=== PATIENT | male | born 1950 | race Caucasian/White ===

== ENCOUNTER 2020-12-05 10:24 | Emergency (ER) | payer OTHER ==
[~2020-12-05] VITALS: Ht 185.4 cm; Wt 45.4 kg
[~2020-12-05 10:24] MED LIST: NITR.4SL SL; PANT40 PO; TIOT18 INH
[2020-12-05 11:03] LABS: BASOPHILS ABSOLUTE AUTO 0.03 K/mm3 (0.00-0.23); BASOPHILS PERCENT AUTO 1 % (0-2); EOSINOPHILS ABSOLUTE AUTO 0.03 K/mm3 (0.00-0.68); EOSINOPHILS PERCENT AUTO 1 % (0-6); Hematocrit 34.8 % (37.0-53.0); Hemoglobin 11.8 g/dL (13.5-17.5); IMMATURE GRAN ABSOLUTE AUTO 0.01 K/mm3 (0.00-0.10); IMMATURE GRAN PERCENT AUTO 0 % (0-1); LYMPHOCYTES ABSOLUTE AUTO 0.75 K/mm3 (0.84-5.20); LYMPHOCYTES PERCENT AUTO 14 % (21-46); MONOCYTES PERCENT AUTO 6 % (4-13); Mean Corpuscular HGB 33.1 pg (26.0-34.0); Mean Corpuscular HGB Conc 33.9 g/dL (31.5-36.5); Mean Corpuscular Volume 98 fL (80-100); Mean Platelet Volume 11.2 fL (9.1-12.4); NEUTROPHILS PERCENT AUTO 79 % (41-73); Platelet Count 142 K/mm3 (150-400); RDW Coefficient Variation 12.8 % (11.7-14.2); RDW Standard Deviation 46.1 fL (35.1-46.3); Red Blood Cell Count 3.57 M/mm3 (4.30-5.90); White Blood Cell Count 5.42 K/mm3 (4.00-11.30)
[2020-12-05 11:16] LABS: Alanine Aminotransfer (ALT/SGP 18 U/L (12-78); Albumin, Blood 3.1 g/dL (3.4-5.0); Albumin/Globulin Ratio 0.9 (0.8-1.8); Alk Phos 67 U/L (50-136); Anion Gap 7 mmol/L (6-16); Aspartate Aminotrans (AST/SGOT 31 U/L (12-37); Bilirubin, Total 1.9 mg/dL (0.1-1.0); Blood Urea Nitrogen 7 mg/dL (8-24); Bun/Creatinine Ratio 8.2 (12.0-20.0); CO2, Blood 26 mmol/L (21-32); Calcium, Blood 8.8 mg/dL (8.5-10.1); Chloride, Blood 98 mmol/L (98-108); Creatinine, Blood 0.86 mg/dL (0.60-1.20); Globulin, Blood 3.3 g/dL (2.2-4.0); Glomerular Filtration Rate >60 (60-); Glucose, Blood 127 mg/dL (70-99); Potassium, Blood 3.3 mmol/L (3.5-5.5); Sodium, Blood 131 mmol/L (136-145); Total Protein, Blood 6.4 g/dL (6.4-8.2); Troponin I <0.015 ng/mL (0.000-0.040)
== END 2020-12-05 13:10 | disposition home or self-care (01) ==
LOC: ER 10:24
PROVIDERS: Emergency Medicine
DX: R53.1 Weakness (principal); R05 Cough; R63.0 Anorexia; J44.9 Chronic obstructive pulmonary disease, unspecified; I10 Essential (primary) hypertension; K21.9 Gastro-esophageal reflux disease without esophagitis; F17.200 Nicotine dependence, unspecified, uncomplicated
CPT/HCPCS: 70450; 71045; 74177; 80053; 84484; 85025; 93005; 93010; 96365-59; 99285-25; J3480; Q9967

== ENCOUNTER → 2021-11-14 | Outpatient (CLI) | payer OTHER ==
[2021-11-14 19:00] LABS: BASOPHILS ABSOLUTE AUTO 0.03 K/mm3 (0.00-0.23); BASOPHILS PERCENT AUTO 1 % (0-2); EOSINOPHILS PERCENT AUTO 2 % (0-6); Hematocrit 36.2 % (37.0-53.0); Hemoglobin 12.1 g/dL (13.5-17.5); IMMATURE GRAN ABSOLUTE AUTO 0.01 K/mm3 (0.00-0.10); IMMATURE GRAN PERCENT AUTO 0 % (0-1); LYMPHOCYTES ABSOLUTE AUTO 1.32 K/mm3 (0.84-5.20); LYMPHOCYTES PERCENT AUTO 30 % (21-46); MONOCYTES ABSOLUTE AUTO 0.34 K/mm3 (0.16-1.47); MONOCYTES PERCENT AUTO 8 % (4-13); Mean Corpuscular HGB 31.3 pg (26.0-34.0); Mean Corpuscular HGB Conc 33.4 g/dL (31.5-36.5); Mean Corpuscular Volume 94 fL (80-100); Mean Platelet Volume 10.9 fL (9.1-12.4); NEUTROPHILS ABSOLUTE AUTO 2.62 K/mm3 (1.96-9.15); NEUTROPHILS PERCENT AUTO 59 % (41-73); Platelet Count 167 K/mm3 (150-400); RDW Coefficient Variation 12.1 % (11.7-14.2); RDW Standard Deviation 41.8 fL (35.1-46.3); Red Blood Cell Count 3.87 M/mm3 (4.30-5.90); White Blood Cell Count 4.42 K/mm3 (4.00-11.30)
[2021-11-14 19:48] LABS: Alanine Aminotransfer (ALT/SGP 21 U/L (12-78); Albumin, Blood 3.5 g/dL (3.4-5.0); Alk Phos 89 U/L (50-136); Anion Gap 5 mmol/L (6-16); Aspartate Aminotrans (AST/SGOT 31 U/L (12-37); Bilirubin, Total 0.9 mg/dL (0.1-1.0); Blood Urea Nitrogen 13 mg/dL (8-24); Bun/Creatinine Ratio 14.8 (12.0-20.0); CHOL/HDL RATIO 1.1; CO2, Blood 28 mmol/L (21-32); Calcium, Blood 9.1 mg/dL (8.5-10.1); Chloride, Blood 97 mmol/L (98-108); Cholesterol 120 mg/dL (50-200); Creatinine, Blood 0.88 mg/dL (0.60-1.20); Globulin, Blood 3.6 g/dL (2.2-4.0); Glomerular Filtration Rate >60 (60-); Glucose, Blood 85 mg/dL (70-99); HDL Cholesterol 106 mg/dL (>39); LDL/HDL RATIO 0.1; Low Density Lipoprotein Chol 6 mg/dL (0-110); Potassium, Blood 4.6 mmol/L (3.5-5.5); Sodium, Blood 130 mmol/L (136-145); Total Protein, Blood 7.1 g/dL (6.4-8.2); Triglycerides 39 mg/dL (30-160); Very Low Density Lipoprot Chol 7 mg/dL (6-32)
== END ==
LOC: LAB SHORT 17:53
PROVIDERS: Nurse Practitioner Family
DX: I10 Essential (primary) hypertension (principal); E03.9 Hypothyroidism, unspecified; E78.5 Hyperlipidemia, unspecified; E11.9 Type 2 diabetes mellitus without complications
CPT/HCPCS: 36415; 80053; 80061; 83036; 84443; 85025

== ENCOUNTER → 2022-05-31 | Outpatient (CLI) | payer OTHER ==
[2022-05-31 17:23] LABS: BASOPHILS ABSOLUTE AUTO 0.04 K/mm3 (0.00-0.23); BASOPHILS PERCENT AUTO 1 % (0-2); EOSINOPHILS ABSOLUTE AUTO 0.04 K/mm3 (0.00-0.68); EOSINOPHILS PERCENT AUTO 1 % (0-6); Hematocrit 36.9 % (37.0-53.0); Hemoglobin 11.7 g/dL (13.5-17.5); IMMATURE GRAN ABSOLUTE AUTO 0.02 K/mm3 (0.00-0.10); IMMATURE GRAN PERCENT AUTO 0 % (0-1); LYMPHOCYTES ABSOLUTE AUTO 1.23 K/mm3 (0.84-5.20); LYMPHOCYTES PERCENT AUTO 19 % (21-46); MONOCYTES ABSOLUTE AUTO 0.55 K/mm3 (0.16-1.47); MONOCYTES PERCENT AUTO 8 % (4-13); Mean Corpuscular HGB 30.1 pg (26.0-34.0); Mean Corpuscular HGB Conc 31.7 g/dL (31.5-36.5); Mean Corpuscular Volume 95 fL (80-100); Mean Platelet Volume 10.5 fL (9.1-12.4); NEUTROPHILS ABSOLUTE AUTO 4.66 K/mm3 (1.96-9.15); NEUTROPHILS PERCENT AUTO 71 % (41-73); Platelet Count 295 K/mm3 (150-400); RDW Coefficient Variation 12.7 % (11.7-14.2); RDW Standard Deviation 43.9 fL (35.1-46.3); Red Blood Cell Count 3.89 M/mm3 (4.30-5.90); White Blood Cell Count 6.54 K/mm3 (4.00-11.30)
[2022-05-31 18:09] LABS: Percent Saturation 13.1 % (20.0-50.0)
== END | disposition home or self-care (01) ==
LOC: LAB SHORT 10:35
PROVIDERS: Nurse Practitioner Family
DX: J44.9 Chronic obstructive pulmonary disease, unspecified (principal); D64.9 Anemia, unspecified
CPT/HCPCS: 82728; 83540; 83550; 85025

== ENCOUNTER → 2022-08-27 | Outpatient (CLI) | payer OTHER ==
[2022-08-27 17:58] LABS: BASOPHILS ABSOLUTE AUTO 0.02 K/mm3 (0.00-0.23); BASOPHILS PERCENT AUTO 0 % (0-2); EOSINOPHILS ABSOLUTE AUTO 0.01 K/mm3 (0.00-0.68); EOSINOPHILS PERCENT AUTO 0 % (0-6); Hemoglobin 13.2 g/dL (13.5-17.5); IMMATURE GRAN ABSOLUTE AUTO 0.06 K/mm3 (0.00-0.10); IMMATURE GRAN PERCENT AUTO 1 % (0-1); LYMPHOCYTES ABSOLUTE AUTO 0.63 K/mm3 (0.84-5.20); LYMPHOCYTES PERCENT AUTO 5 % (21-46); MONOCYTES ABSOLUTE AUTO 0.53 K/mm3 (0.16-1.47); MONOCYTES PERCENT AUTO 4 % (4-13); Mean Corpuscular HGB 31.5 pg (26.0-34.0); Mean Corpuscular Volume 96 fL (80-100); Mean Platelet Volume 10.4 fL (9.1-12.4); NEUTROPHILS ABSOLUTE AUTO 11.09 K/mm3 (1.96-9.15); NEUTROPHILS PERCENT AUTO 90 % (41-73); Platelet Count 364 K/mm3 (150-400); RDW Coefficient Variation 14.7 % (11.7-14.2); RDW Standard Deviation 51.4 fL (35.1-46.3); Red Blood Cell Count 4.19 M/mm3 (4.30-5.90); White Blood Cell Count 12.34 K/mm3 (4.00-11.30)
[2022-08-27 18:38] LABS: C-REACTIVE PROTEIN, EXT RANGE 0.309 mg/dL (0.000-0.300)
[2022-08-27 18:48] LABS: Albumin, Blood 3.1 g/dL (3.4-5.0); Albumin/Globulin Ratio 0.9 (0.8-1.8); Bilirubin, Total 0.4 mg/dL (0.1-1.0); Bun/Creatinine Ratio 25.9 (12.0-20.0); Calcium, Blood 9.7 mg/dL (8.5-10.1); Creatinine, Blood 0.73 mg/dL (0.60-1.20); Globulin, Blood 3.6 g/dL (2.2-4.0); Potassium, Blood 3.2 mmol/L (3.5-5.5); Thyroid Stimulating Hormone 1.33 uIU/mL (0.360-4.800); Total Protein, Blood 6.7 g/dL (6.4-8.2)
== END | disposition home or self-care (01) ==
LOC: LAB SHORT 16:59
PROVIDERS: Nurse Practitioner Family
DX: R63.4 Abnormal weight loss (principal)
CPT/HCPCS: 80053; 84443; 85025; 85651; 86140

== ENCOUNTER 2022-10-20 11:04 | Inpatient (IN) | payer OTHER ==
[~2022-10-20] VITALS: Ht 180.3 cm; Wt 43.2 kg
[2022-10-20] MEDS ORDERED: HYDROCODONE-AC1 EA19 PO (11:19)
[2022-10-20 12:43] LABS: BASOPHILS ABSOLUTE AUTO 0.02 K/mm3 (0.00-0.23); BASOPHILS PERCENT AUTO 0 % (0-2); EOSINOPHILS PERCENT AUTO 0 % (0-6); Hematocrit 35.2 % (37.0-53.0); Hemoglobin 11.4 g/dL (13.5-17.5); IMMATURE GRAN PERCENT AUTO 1 % (0-1); LYMPHOCYTES PERCENT AUTO 4 % (21-46); MONOCYTES ABSOLUTE AUTO 0.69 K/mm3 (0.16-1.47); MONOCYTES PERCENT AUTO 4 % (4-13); Mean Corpuscular HGB 31.5 pg (26.0-34.0); Mean Corpuscular HGB Conc 32.4 g/dL (31.5-36.5); Mean Corpuscular Volume 97 fL (80-100); Mean Platelet Volume 10.6 fL (9.1-12.4); NEUTROPHILS ABSOLUTE AUTO 14.58 K/mm3 (1.96-9.15); NEUTROPHILS PERCENT AUTO 91 % (41-73); Platelet Count 361 K/mm3 (150-400); RDW Coefficient Variation 13.5 % (11.7-14.2); RDW Standard Deviation 48.2 fL (35.1-46.3); Red Blood Cell Count 3.62 M/mm3 (4.30-5.90); White Blood Cell Count 15.99 K/mm3 (4.00-11.30)
[2022-10-20 13:10] LABS: Albumin, Blood 1.8 g/dL (3.4-5.0); Albumin/Globulin Ratio 0.4 (0.8-1.8); Bilirubin, Total 1.2 mg/dL (0.1-1.0); Bun/Creatinine Ratio 24.4 (12.0-20.0); Calcium, Blood 8.3 mg/dL (8.5-10.1); Creatine Kinase MB 1.2 ng/mL (0.0-3.6); Creatine Kinase MB Index 1.6 (0.0-4.0); Creatinine, Blood 1.27 mg/dL (0.60-1.20); Globulin, Blood 4.3 g/dL (2.2-4.0); Potassium, Blood 2.8 mmol/L (3.5-5.5); Total Protein, Blood 6.1 g/dL (6.4-8.2)
[2022-10-20] MEDS ORDERED: Prinivil10 MG PO (16:41)
[2022-10-20] MEDS ORDERED: OMEP20ER PO (16:41)
[2022-10-20] MEDS ORDERED: LEVSOD25 PO (16:41)
[2022-10-20] MEDS ORDERED: ALBU90OI INH (16:42)
[2022-10-20] MEDS ORDERED: ORTIKOS9 M1 PO (16:43)
[2022-10-20] MEDS ORDERED: IPRAT-ALBUT 0.5-3 ML INH (16:44)
[2022-10-20] MEDS ORDERED: FLONASE ALLERG9.9 M2 NS (16:44)
[2022-10-20] MEDS ORDERED: PRED20 PO (16:44)
[2022-10-20 19:07] VITALS: BP 93/63
--- NOTE | 2022-10-20 19:30 | NUR ---
ADMITTION TO MEDICAL FLOOR MR YUEN ARRIVED TO MEDICAL UNIT AT 1800HRS. TRANSFERED VIA SLIDE SHEET ONTO THE BED. PT CACHECTIC, ERIC PROTRUSIONS. REDDENED AREA OVER THE SKIN OF SPINE. TAILBONE AREA DEEP ARK RED, NO BREAKDOWN. MULTIPLE SCRATHES AND BRUISES. R KNEE SWOLLEN AND BRUISED. FEET REDDENED. SKIN COOL AND FRAIL. SWELLING TO LEFT NECK. SKIN SATURATED FROM URINARY INCONTINENCE. SKIN CLEANSED AND PT WRAPPED IN WARM BLANKETS. MEPILEX PLACED ON COCCYX AND SPINE. MR YUEN CAN WHISPER BUT IS EXHAUSTED SO MOST QUESTIONS FOR ADMISSION DIRECTED THROUGH HIS DAUGHTER. POOR SKIN PALOR. IVF D5 1/2 NS INFUSING AT 150CC/HR ON ARRIVAL AND 1ST OF 3 POTASSIUM INFUSIONS. 2ND POTASSIUM HUNG AND FLAGYL STARTED USING 2ND PIV. KPHOS TO BE HUNG NEXT IT TAKES LONGER TO INFUSE. +ETOH HISTORY, PT SAID HE HAS NOT DRANK ALCOHOL FOR 2 WEEKS. 2PPDAY SMOKER PER DAUGHTER. PT VERY WEAK, NEEDING ASSISTANCE TO TURN AND MOVE IN BED. BED LOW, CALL LIGHT IN REACH. REPORT TO NIGHT RN.
[2022-10-20 19:40] VITALS: BP 99/58
[2022-10-21 04:08] VITALS: BP 98/55
[2022-10-21 05:02] LABS: Bun/Creatinine Ratio 24.8 (12.0-20.0); Creatinine, Blood 1.41 mg/dL (0.60-1.20); Potassium, Blood 3.4 mmol/L (3.5-5.5)
[2022-10-21 05:04] LABS: BASOPHILS ABSOLUTE AUTO 0.02 K/mm3 (0.00-0.23); BASOPHILS PERCENT AUTO 0 % (0-2); EOSINOPHILS ABSOLUTE AUTO 0.03 K/mm3 (0.00-0.68); EOSINOPHILS PERCENT AUTO 0 % (0-6); Hematocrit 33.4 % (37.0-53.0); Hemoglobin 10.9 g/dL (13.5-17.5); IMMATURE GRAN ABSOLUTE AUTO 0.08 K/mm3 (0.00-0.10); IMMATURE GRAN PERCENT AUTO 1 % (0-1); LYMPHOCYTES ABSOLUTE AUTO 1.21 K/mm3 (0.84-5.20); LYMPHOCYTES PERCENT AUTO 10 % (21-46); MONOCYTES ABSOLUTE AUTO 0.61 K/mm3 (0.16-1.47); MONOCYTES PERCENT AUTO 5 % (4-13); Mean Corpuscular HGB 31.1 pg (26.0-34.0); Mean Corpuscular HGB Conc 32.6 g/dL (31.5-36.5); Mean Corpuscular Volume 95 fL (80-100); NEUTROPHILS ABSOLUTE AUTO 9.82 K/mm3 (1.96-9.15); NEUTROPHILS PERCENT AUTO 83 % (41-73); Platelet Count 270 K/mm3 (150-400); RDW Coefficient Variation 13.6 % (11.7-14.2); RDW Standard Deviation 47.9 fL (35.1-46.3); White Blood Cell Count 11.77 K/mm3 (4.00-11.30)
--- NOTE | 2022-10-21 06:32 | NUR ---
PT BLADDER SCANNED X2 THIS SHIFT, LAST BLADDER SCAN AT 0625 WITH 271ML. PT HAS NOT VOIDED ON THIS SHIFT. IV FLUIDS RUNNING. PAIN MEDS GIVEN X2.
[2022-10-21 07:10] VITALS: BP 108/68
[2022-10-21 10:41] VITALS: BP 141/76
[2022-10-21 10:42] VITALS: BP 141/76
--- NOTE | 2022-10-21 17:27 | NUR ---
SHIFT SUMMARY MR YUEN IS ABLE TO TALK IN A WHISPER BUT TIRES VERY EASILY, HE IS BETTER WITH YES/NO OR SHORT ANSWER QUESTIONS. ANSWERS TO QUESTIONS HAVE ALL BEEN APPROPRIATE/ORIENTATED. A FERRER WAS PLACED TODAY FOR URINARY RETENTION. DARK YELLOW UOP. TURNED AND REPOSITIONED IN BED - SKIN VERY FRAIL, UNDERWEIGHT, BONY PROTRUSIONS, MEPILEX TO REDDENED AREAS ON SPINE AND TAILBONE. CAROLIN (DAUGHTER AND POA) AND OTHER FAMILY MEMBERS TALKED WITH DR BILLINGS, ALONG WITH MR YUEN AND COMFORT CARE MEASURE WERE COMMENCED. MR YUEN SAID THAT HE IS READY TO . ME ALPA WAS C/O BACK PAIN THIS AM, BUT THIS AFTERNOON THE PAIN WAS ALL HIS LEFT NECK OVER THE NECK SWELLING. IV FENTANYL AND MORPHINE IV DID NOT SEEM TO HELP. HE LOOKS MORE COMFORTABLE AFTER ROXINOL SL. IVF CONTINUE. BED LOW, CALL LIGHT IN USE.
--- NOTE | 2022-10-22 06:13 | NUR ---
SUMMARY: PT REMAINS ON COMFORT MEASURES AND APPEARED TO PEACEFULLY SLEEP MAJORITY OF NOCTE W/O S/S PAIN OR DISTRESS. HE IS WAKEFUL TO VOICE AND HAS WHISPERED SPEECH BUT WAS MOSTLY NONVERBAL. PT ANSWERED A FEW YES/NO Q'S APPROPRIATELY BUT WAS PRIMARILY WITHDRAWN THIS SHIFT. NO PRN MEDS REQUIRED. IVF INFUSING AND ABX RECIEVED. PO MEDS HELD D/T PT NOT ALERT ENOUGH TO SAFELY TAKE THEM. SIPS WATER OFFERED AND MOUTH CARE PROVIDED PRN. HE'S VERY WEAK AND CACHECTIC W/TURN SCHEDULED MAINTAINED AND PILLOWS PLACED TO BONY PROMINENCES FOR SBD PREVENTION. MEPILEX TO COCCYX IS C/D/I AND FERRER IS PATENT/DRAINING SMALL AMT OF CONCENTRATED UO. NO ACUTE CHANGES. WCTM AND REPORT TO DAY RN.
[2022-10-22 09:31] LABS: Source, Urine Foley catheter
[2022-10-22 09:34] LABS: Bilirubin, Urine Neg (Neg); Blood, Urine 3+ (Neg); Glucose Qualitative, Urine Neg (Neg); Ketones, Urine Neg (Neg); Leukocyte Esterase, Urine 1+ (Neg); Nitrite, Urine Neg (Neg); Protein, Urine 2+ (Neg); Specific Gravity, Urine 1.015 (1.003-1.022); Urobilinogen, Urine NORM (Normal)
[2022-10-22 09:41] LABS: Appearance, Urine Hazy (Clear); Color, Urine Yellow (P-Yellow)
[2022-10-22 09:42] LABS: Bacteria Few /hpf; Squamous Epithelial Cells Few /hpf (Few)
[2022-10-22 09:43] LABS: Granular Casts 0-2 /lpf (0)
--- NOTE | 2022-10-22 11:07 | NUR ---
Comfort Care Visit Comfort Care order placed by hospitalist. Pt resting in bed and is A&OX4. Pt requesting pain medication. Offered therapeutic listening for Pt and daughter Kelsie. Daughter Kelsie tearful and emotional support offered. Continued supportive visit for Pt and daughter. Spoke with Primary RN Yunior and discussed case. Relayed Pt's request for morphine. Discussed consideration of placing scopolamine patch to assist with secretions and Atropine. Palliative Care will remain available
--- NOTE | 2022-10-22 15:23 | NUR ---
PATIENT NOTE PATIENT AT 1515 TODAY. DAUGHTER WAS IN [place] DURING PATIENT PASSING
--- NOTE | 2022-10-22 15:41 | NUR ---
Received call with request to come to Pt's room. Pt resting in bed and appears to have . Respirations are absent. Family at bedside. Primary RN Yunior and [employer] boss Isaac have comfirmed absence of apical. Offered emotional support as family is intermittently tearful. Offered praised to family for being there for Pt. Provided list of homes to choose from. Continued supportive visit. Family appears to be grieving appropriately. Called Human Resources Trainee Gustavo per family request. Palliative Care will remain available
--- NOTE | 2022-10-22 15:45 | NUR ---
Spiritual care visit conducted. Immediately following patient's at 1515, I visit with family. Daughter Kelsie, and niece RN Isaac are present. Isaac leaves the shortly after I arrive and just prior to my exit. Kelsie tells me about the patient's hard life and the complications of the giref. We talk about the relief of knowing that for the patient, is the end of many years of pain and sufffering. She tells me about his Bahai background and submits her request for prayer. I gladly provide prayer for patient and comfort for the family. Kelsie explains about her immediate family having just left and how that may have been a good thing for several reasons. I provide therapeutic listening, grief support and prayer. Family respond well and show signs of being comforted.
--- NOTE | 2022-10-22 16:01 | NUR ---
NURSE NOTE NOTIFIED OF PATIENTS TIME OF .
== END 2022-10-22 15:15 | DRG 177 ==
LOC: ER 11:04 → MEDS 16:08
PROVIDERS: Student in an Organized Health Care Education/Training Program; ADMIT Internal Medicine
DX: J69.0 Pneumonitis due to inhalation of food and vomit (principal); E43 Unspecified severe protein-calorie malnutrition; Z66 Do not resuscitate; Z51.5 Encounter for palliative care; E87.0 Hyperosmolality and hypernatremia; N17.9 Acute kidney failure, unspecified; Z68.1 Body mass index [BMI] 19.9 or less, adult; R64 Cachexia; C77.0 Secondary and unspecified malignant neoplasm of lymph nodes of head, face and neck; C78.02 Secondary malignant neoplasm of left lung; C78.01 Secondary malignant neoplasm of right lung; F32.A Depression, unspecified; I10 Essential (primary) hypertension; J44.9 Chronic obstructive pulmonary disease, unspecified; I25.10 Atherosclerotic heart disease of native coronary artery without angina pectoris; K21.9 Gastro-esophageal reflux disease without esophagitis; F43.10 Post-traumatic stress disorder, unspecified; F17.210 Nicotine dependence, cigarettes, uncomplicated; E87.6 Hypokalemia; R62.7 Adult failure to thrive; F10.20 Alcohol dependence, uncomplicated; G20 Parkinson's disease; R29.6 Repeated falls; F02.80 Dementia in other diseases classified elsewhere, unspecified severity, without behavioral disturbance, psychotic disturbance, mood disturbance, and anxiety; R13.10 Dysphagia, unspecified; E86.0 Dehydration; R94.31 Abnormal electrocardiogram [ECG] [EKG]; C32.1 Malignant neoplasm of supraglottis; Z96.642 Presence of left artificial hip joint; Z86.19 Personal history of other infectious and parasitic diseases; Z85.850 Personal history of malignant neoplasm of thyroid; Z92.21 Personal history of antineoplastic chemotherapy; Z92.3 Personal history of irradiation
CPT/HCPCS: 36415; 70450; 70491; 71046; 80048; 80053; 81001; 82550; 82553; 83735; 85025; 93005; 93010; 94640; 94664; 94760; 96361; 96365-59; 96366; 96368; 96375; 99285-25; A9270; J0696; J1650; J1885; J2270; J3010; J3475; J3480; J7030; J7042; J7050; J7060; Q9967